=== PATIENT | male | born 1960 | race Caucasian/White ===

== ENCOUNTER 2016-11-06 14:38 | Emergency (ER) | payer OTHER ==
[~2016-11-06 14:38] MED LIST: ACIPHEX20 MG; BLINK EYE DROPS; CYMBALTA30 MG PO; KLONOPIN1 MG; MAALOX525 MG/15 PO; PROTONIX40 M2 PO; PROVENTIC; REQUIP1 MG; TYLENOL500 MG; XANAX1 MG PO; ZOCOR40 M1 PO
[2016-11-06] MEDS ORDERED: REQUIP0.25 M1 PO (14:52)
[2016-11-06] MEDS ORDERED: ZANAFLEX4 M2 PO (14:53)
[2016-11-06] MEDS ORDERED: NORCO 5-325 TA1 EACH PO (18:00)
[2016-12-22] MEDS ORDERED: MULTIVITAMIN (10:24)
== END 2016-11-06 18:11 ==
LOC: EDMED 14:38
DX: S46.211A Strain of muscle, fascia and tendon of other parts of biceps, right arm, initial encounter (principal); X50.1XXA Overexertion from prolonged static or awkward postures, initial encounter; Y93.89 Activity, other specified; Y92.89 Other specified places as the place of occurrence of the external cause; Y99.8 Other external cause status
CPT/HCPCS: J2270